=== PATIENT | female | born 1980 | race African-American/Black ===

== ENCOUNTER 2016-10-26 07:38 | Emergency (ER) | payer MEDICAID, OTHER ==
[~2016-10-26] VITALS: Ht 157.5 cm; Wt 78.5 kg
[2016-10-26 07:59] VITALS: BP 137/74
[2016-10-26] MEDS ORDERED: cefTRIAXone SOD 1,000 MG VL IM ONE (08:30)
[2016-10-26] MEDS ORDERED: IBUPROFEN 800 MG TAB PO ONE (08:30)
== END 2016-10-26 09:22 | disposition home or self-care (01) ==
LOC: ER 07:44
DX: J03.90 Acute tonsillitis, unspecified (principal)
CPT/HCPCS: 96372; 99283; J0696